=== PATIENT | female | born 1945 | race Asian ===

== ENCOUNTER 2019-07-01 12:41 | Emergency (ER) | payer OTHER ==
[~2019-07-01] VITALS: Ht 152.4 cm; Wt 53.2 kg
[~2019-07-01 12:41] MED LIST: ATOR20TA86 PO; BISO5TAB26 PO; CALC-21 PO; CLOP75TA3 PO; GABA-531 PO; HYDR25TA PO; LOSA50TA64 PO; METF-960 PO; NITR0.4T52 SL
[2019-07-01 13:10] LABS: GLUCOSE,POINT OF CARE 160 MG/DL (70-110)
[2019-07-01 16:32] VITALS: BP 133/60
== END 2019-07-01 16:34 | disposition home or self-care (01) ==
LOC: EMS 12:41
DX: S33.8XXA Sprain of other parts of lumbar spine and pelvis, initial encounter (principal); E11.9 Type 2 diabetes mellitus without complications; E78.00 Pure hypercholesterolemia, unspecified; I10 Essential (primary) hypertension; I25.2 Old myocardial infarction; Z90.49 Acquired absence of other specified parts of digestive tract; Z79.84 Long term (current) use of oral hypoglycemic drugs; W19.XXXA Unspecified fall, initial encounter; Y93.89 Activity, other specified; Y92.89 Other specified places as the place of occurrence of the external cause; Y99.8 Other external cause status
CPT/HCPCS: 72220

== ENCOUNTER 2019-09-23 16:46 | Inpatient (IN) | payer OTHER ==
[~2019-09-23] VITALS: Ht 152.4 cm; Wt 56.5 kg
[~2019-09-23 16:46] MED LIST changes: -BISO5TAB26 PO; +BISO5TAB4 PO; -CLOP75TA3 PO
[2019-09-23 17:08] LABS: BASOPHILS % (AUTO) 0.6 % (0.0-2.0); HEMATOCRIT 37.5 % (36-46); HEMOGLOBIN 12.3 g/dL (12.0-16.0); LYMPHOCYTES # (AUTO) 3.2 K/uL (1.0-4.8); MEAN CORPUSCULAR HEMOGLOBIN 30.7 pg (26.0-34.0); MEAN CORPUSCULAR HGB CONC 32.9 G/dL (31.0-37.0); MEAN CORPUSCULAR VOLUME 93 fL (80-100); MONOCYTES # (AUTO) 0.7 K/uL (0.1-1.0); MONOCYTES % (AUTO) 10.2 % (2.0-9.0); NEUTROPHILS % (AUTO) 43.2 % (40.0-70.0); PLATELET COUNT (AUTO) 200 K/uL (150-450); RED BLOOD CELL COUNT(AUTO) 4.01 MIL/uL (4.00-5.20); RED CELL DISTRIBUTION WIDTH 12.8 % (11.5-14.5)
[2019-09-23] MEDS ORDERED: SODIUM CHLORIDE 0.9% 100 ML ONE ×3 (17:24→17:25)
[2019-09-23] MEDS ORDERED: IOVERSOL 320 MG/ML 100 ML VIAL ONE (17:24)
[2019-09-23 17:25] LABS: CALCIUM, TOTAL 8.7 mg/dL (8.8-10.5); CREATININE 1.19 mg/dL (0.60-1.30); POTASSIUM 3.5 mmol/L (3.5-5.1)
[2019-09-23 17:30] LABS: ALBUMIN 3.5 g/dL (3.4-5.0); BILIRUBIN,TOTAL 0.2 mg/dL (0.1-1.0); TOTAL PROTEIN, SERUM 7.5 g/dL (6.4-8.2)
[2019-09-23] MEDS ORDERED: LevETIRAcetam 1,000 MG in DEXTROSE 5%-WATER 100 ML IV ONE (17:30)
[2019-09-23 18:11] LABS: PROTHROMBIN TIME 10.2 SEC (9.4-11.6)
[2019-09-23] MEDS ORDERED: ALTEPLASE 5.2 MG in WATER FOR INJECTION,STERILE 5.2 ML IV ONE (19:00)
[2019-09-23] MEDS ORDERED: WATER FOR INJECTION STERILE IV ONE ×3 (19:00)
[2019-09-23] MEDS ORDERED: ALTEPLASE IV ONE ×3 (19:00)
[2019-09-23] MEDS ORDERED: ALTEPLASE PER STROKE PROTOCOL CLINICAL ONE (19:15)
[2019-09-23] MEDS ORDERED: BISACODYL 10 MG RECTAL RECTAL SUPPOSITORY PR PRN (20:15)
[2019-09-23] MEDS ORDERED: DEXTROSE 50%-WATER 25 GM/50 ML SYRINGE IVP PRN (20:15)
[2019-09-23 20:56] LABS: APPEARANCE,URINE CLEAR (CLEAR); BILIRUBIN,URINE NEGATIVE (NEGATIVE); GLUCOSE, URINE (UA) NEGATIVE (NEGATIVE); KETONES,URINE NEGATIVE (NEGATIVE); LEUKOCYTE ESTERASE ,URINE NEGATIVE (NEGATIVE); NITRATE,URINE NEGATIVE (NEGATIVE); OCCULT BLOOD,URINE LARGE (NEGATIVE); PH,URINE 5.5 (5.0-8.0); PROTEIN,URINE NEGATIVE (NEGATIVE); UROBILINOGEN,URINE 0.2 mg/dL (<=1.0)
[2019-09-23 21:02] LABS: GLUCOSE,POINT OF CARE 88 MG/DL (70-110)
[2019-09-23 21:03] LABS: AMPHET/METH SCREEN,URINE NEGATIVE (NEGATIVE); BARBITURATE SCREEN, URINE NEGATIVE (NEGATIVE); BENZODIAZEPINES SCREEN,URINE NEGATIVE (NEGATIVE); CANNABINOID SCREEN,URINE NEGATIVE (NEGATIVE); COCAINE SCREEN,URINE NEGATIVE (NEGATIVE); METHADONE SCREEN, URINE NEGATIVE (NEGATIVE); OPIATE SCREEN,URINE NEGATIVE (NEGATIVE)
[2019-09-23 21:05] LABS: BACTERIA,URINE None Seen /HPF (None Seen); WBC,URINE None Seen /HPF (0-5)
[2019-09-23 21:06] LABS: SQUAMOUS EPITHELIAL CELL,UR Rare /LPF (None Seen)
[2019-09-23 21:08] LABS: PHENCYCLIDINE SCREEN,URINE NEGATIVE (NEGATIVE)
[2019-09-23] MEDS ORDERED: DEXTROSE 50%-WATER 25 GM/50 ML SYRINGE IVP ONE (21:15)
[2019-09-23 23:12] LABS: GLUCOSE,POINT OF CARE 101 MG/DL (70-110)
[2019-09-24 07:37] LABS: GLUCOSE,POINT OF CARE 102 MG/DL (70-110)
[2019-09-24] MEDS: PANTOPRAZOLE SODIUM 40 MG/VIAL IVP SCH (09:14)
[2019-09-24] MEDS ORDERED: DEXTROSE 5%-0.45% SODIUM CHL 1,000 ML IV ONE (10:45)
[2019-09-24 10:50] LABS: BASOPHILS % (AUTO) 0.8 % (0.0-2.0); EOSINOPHILS % (AUTO) 0.7 % (1.0-6.0); HEMATOCRIT 36.6 % (36-46); HEMOGLOBIN 12.2 g/dL (12.0-16.0); LYMPHOCYTES # (AUTO) 2.3 K/uL (1.0-4.8); MEAN CORPUSCULAR HGB CONC 33.3 G/dL (31.0-37.0); MEAN CORPUSCULAR VOLUME 93 fL (80-100); MONOCYTES # (AUTO) 0.5 K/uL (0.1-1.0); MONOCYTES % (AUTO) 6.9 % (2.0-9.0); NEUTROPHILS # (AUTO) 3.7 K/uL (1.8-7.7); NEUTROPHILS % (AUTO) 56.6 % (40.0-70.0); PLATELET COUNT (AUTO) 185 K/uL (150-450); RED BLOOD CELL COUNT(AUTO) 3.93 MIL/uL (4.00-5.20)
[2019-09-24 10:59] LABS: ANION GAP 6 mmol/L (8-16); CALCIUM, TOTAL 8.7 mg/dL (8.8-10.5); CARBON DIOXIDE 28 mmol/L (22-29); CHLORIDE 106 mmol/L (98-107); CREATININE 0.81 mg/dL (0.60-1.30); GLUCOSE,RANDOM 105 mg/dL (70-110); POTASSIUM 3.8 mmol/L (3.5-5.1); SODIUM SERUM 140 mmol/L (136-145); UREA NITROGEN, BLOOD 14 mg/dL (7-18)
[2019-09-24 11:00] LABS: GLOMERULAR FILTR. RATE CALC > 60 mL/min (>60)
[2019-09-24 11:13] LABS: HEMOGLOBIN A1C 6.4 % (4.5-6.2)
[2019-09-24 11:13] LABS: GLUCOSE,POINT OF CARE 103 MG/DL (70-110)
[2019-09-24 11:14] LABS: CHOL/HDL RATIO 2.7 (3.9-5.7); CHOLESTEROL 136 mg/dL (131-200); HDL CHOLESTEROL 51 mg/dL (40-60); LDL CHOL (CALC.) 62 mg/dL (0-130); THYROID STIMULATING HORMONE 0.59 uIU/mL (0.36-3.74); TRIGLYCERIDES 114 mg/dL (15-150)
[2019-09-24] MEDS: ACETAMINOPHEN 325 MG TABLET PO PRN (14:21)
[2019-09-24 17:43] LABS: GLUCOSE,POINT OF CARE 114 MG/DL (70-110)
[2019-09-24] MEDS: INSULIN LISPRO 100 UNITS/ML SQ PRN (20:36)
[2019-09-24 20:41] LABS: GLUCOSE,POINT OF CARE 177 MG/DL (70-110)
[2019-09-25] MEDS: PANTOPRAZOLE SODIUM 40 MG/VIAL IVP SCH (08:29)
[2019-09-25 08:58] LABS: GLUCOSE,POINT OF CARE 95 MG/DL (70-110)
[2019-09-25] MEDS: ACETAMINOPHEN 325 MG TABLET PO PRN (13:07)
[2019-09-25] MEDS: ATORVASTATIN CALCIUM 40 MG TABLET PO SCH (17:10)
[2019-09-25 21:10] VITALS: BP 163/72
[2019-09-25] MEDS: INSULIN LISPRO 100 UNITS/ML SQ PRN (22:56)
[2019-09-25 23:14] VITALS: BP 125/67
[2019-09-26] MEDS ORDERED: PNEUMOCOCCAL VACCINE POLYVALENT 0.5 ML VIAL [PPSV23] IM ONE (01:30)
[2019-09-26] MEDS ORDERED: INFLUENZA VIRUS VACCINE QVS 2019-20 (3YR+)/PF 60 MCG/0.5 ML SYRINGE IM ONE (01:30)
[2019-09-26 05:14] VITALS: BP 127/75
[2019-09-26 06:50] LABS: GLUCOMETER DEV NAME(LOC) 5S.1; GLUCOSE,POINT OF CARE 158 MG/DL (70-110)
[2019-09-26 06:50] LABS: GLUCOMETER DEV NAME(LOC) 5S.1; GLUCOSE,POINT OF CARE 104 MG/DL (70-110)
[2019-09-26 07:20] VITALS: BP 145/69
[2019-09-26] MEDS: PANTOPRAZOLE SODIUM 40 MG/VIAL IVP SCH (08:27)
[2019-09-26] MEDS: ASPIRIN 81 MG CHEWABLE TABLET PO SCH (08:27)
[2019-09-26] MEDS: ATORVASTATIN CALCIUM 40 MG TABLET PO SCH (08:27)
[2019-09-26 10:13] LABS: BASOPHILS % (AUTO) 0.6 % (0.0-2.0); EOSINOPHILS % (AUTO) 2.2 % (1.0-6.0); HEMATOCRIT 34.5 % (36-46); HEMOGLOBIN 11.8 g/dL (12.0-16.0); MEAN CORPUSCULAR HEMOGLOBIN 31.7 pg (26.0-34.0); MEAN CORPUSCULAR HGB CONC 34.2 G/dL (31.0-37.0); MEAN CORPUSCULAR VOLUME 93 fL (80-100); MONOCYTES # (AUTO) 0.5 K/uL (0.1-1.0); MONOCYTES % (AUTO) 7.4 % (2.0-9.0); NEUTROPHILS # (AUTO) 3.5 K/uL (1.8-7.7); NEUTROPHILS % (AUTO) 56.8 % (40.0-70.0); PLATELET COUNT (AUTO) 170 K/uL (150-450); RED BLOOD CELL COUNT(AUTO) 3.72 MIL/uL (4.00-5.20); RED CELL DISTRIBUTION WIDTH 12.8 % (11.5-14.5)
[2019-09-26 10:17] LABS: ANION GAP 4 mmol/L (8-16); CALCIUM, TOTAL 8.5 mg/dL (8.8-10.5); CARBON DIOXIDE 30 mmol/L (22-29); CHLORIDE 105 mmol/L (98-107); GLUCOSE,RANDOM 133 mg/dL (70-110); POTASSIUM 3.9 mmol/L (3.5-5.1); SODIUM SERUM 139 mmol/L (136-145); UREA NITROGEN, BLOOD 15 mg/dL (7-18)
[2019-09-26 10:20] LABS: GLOMERULAR FILTR. RATE CALC > 60 mL/min (>60)
[2019-09-26 11:40] VITALS: BP 135/70
[2019-09-26 15:57] VITALS: BP 119/62
[2019-09-26 16:47] LABS: GLUCOMETER DEV NAME(LOC) 5S.1; GLUCOSE,POINT OF CARE 85 MG/DL (70-110)
[2019-09-26 20:24] VITALS: BP 119/62
[2019-09-26 23:16] LABS: GLUCOMETER DEV NAME(LOC) 5S.1; GLUCOSE,POINT OF CARE 128 MG/DL (70-110)
[2019-09-26 23:47] VITALS: BP 139/60
[2019-09-27 06:03] VITALS: BP 128/56
[2019-09-27 07:02] LABS: GLUCOMETER DEV NAME(LOC) 5S.1; GLUCOSE,POINT OF CARE 118 MG/DL (70-110)
[2019-09-27 07:35] VITALS: BP 131/71
[2019-09-27] MEDS: ATORVASTATIN CALCIUM 40 MG TABLET PO SCH (08:26)
[2019-09-27] MEDS: PANTOPRAZOLE SODIUM 40 MG/VIAL IVP SCH (08:26)
[2019-09-27] MEDS: ASPIRIN 81 MG CHEWABLE TABLET PO SCH (08:26)
[2019-09-27 11:29] VITALS: BP 137/75
[2019-09-27 13:26] LABS: GLUCOMETER DEV NAME(LOC) 5S.1; GLUCOSE,POINT OF CARE 100 MG/DL (70-110)
[2019-09-27 15:20] VITALS: BP 124/68
[2019-09-28 11:51] LABS: GLUCOMETER DEV NAME(LOC) 5S.1; GLUCOSE,POINT OF CARE 106 MG/DL (70-110)
== END 2019-09-27 17:41 | DRG 45 ==
LOC: EMS 16:47 → 5N 09-25 18:39
PROVIDERS: ADMIT Internal Medicine; ATTEND Internal Medicine
DX: I63.9 Cerebral infarction, unspecified (principal); E11.9 Type 2 diabetes mellitus without complications; G81.94 Hemiplegia, unspecified affecting left nondominant side; R47.01 Aphasia; I25.10 Atherosclerotic heart disease of native coronary artery without angina pectoris; E78.5 Hyperlipidemia, unspecified; I10 Essential (primary) hypertension; E78.00 Pure hypercholesterolemia, unspecified; Z82.49 Family history of ischemic heart disease and other diseases of the circulatory system; Z86.73 Personal history of transient ischemic attack (TIA), and cerebral infarction without residual deficits; Z95.1 Presence of aortocoronary bypass graft; Z90.49 Acquired absence of other specified parts of digestive tract; I25.2 Old myocardial infarction; Z98.49 Cataract extraction status, unspecified eye
CPT/HCPCS: 70496; 70551; 73521; 83036; 84443; 86850; 86900; 86901; 92610; 93005; 93306; 97116; 97162; 97166; 97530; 97535; 99291; C9113; J0712; J1815; J2997; J7050; J7060

== ENCOUNTER 2019-09-27 17:50 | Inpatient (IN) | payer OTHER ==
[~2019-09-27] VITALS: Ht 149.9 cm; Wt 53.5 kg
[2019-09-27 18:00] VITALS: BP 144/69
[2019-09-27] MEDS ORDERED: BISACODYL 10 MG RECTAL RECTAL SUPPOSITORY PR PRN (20:15)
[2019-09-27] MEDS ORDERED: INFLUENZA VIRUS VACCINE QVS 2019-20 (3YR+)/PF 60 MCG/0.5 ML SYRINGE IM ONE (20:15)
[2019-09-27] MEDS ORDERED: DEXTROSE 50%-WATER 25 GM/50 ML SYRINGE IVP PRN (20:15)
[2019-09-27] MEDS: SENNA 187 MG TABLET PO SCH (20:43)
[2019-09-27] MEDS: DOCUSATE SODIUM 100 MG CAPSULE PO SCH (20:43)
[2019-09-27] MEDS: INSULIN LISPRO 100 UNITS/ML SQ PRN (21:46)
[2019-09-27 22:06] LABS: GLUCOMETER DEV NAME(LOC) 2WR.2; GLUCOSE,POINT OF CARE 159 MG/DL (70-110)
[2019-09-27 23:30] VITALS: BP 137/63
[2019-09-28 06:13] LABS: GLUCOMETER DEV NAME(LOC) 2WR.1B; GLUCOSE,POINT OF CARE 112 MG/DL (70-110)
[2019-09-28 06:20] LABS: BASOPHILS % (AUTO) 0.8 % (0.0-2.0); EOSINOPHILS % (AUTO) 3.4 % (1.0-6.0); HEMATOCRIT 35.5 % (36-46); HEMOGLOBIN 12.1 g/dL (12.0-16.0); LYMPHOCYTES # (AUTO) 1.9 K/uL (1.0-4.8); LYMPHOCYTES % (AUTO) 30.3 % (22.0-44.0); MEAN CORPUSCULAR HEMOGLOBIN 31.4 pg (26.0-34.0); MEAN CORPUSCULAR HGB CONC 34.1 G/dL (31.0-37.0); MEAN CORPUSCULAR VOLUME 92 fL (80-100); MONOCYTES # (AUTO) 0.5 K/uL (0.1-1.0); MONOCYTES % (AUTO) 7.8 % (2.0-9.0); NEUTROPHILS # (AUTO) 3.7 K/uL (1.8-7.7); NEUTROPHILS % (AUTO) 57.7 % (40.0-70.0); PLATELET COUNT (AUTO) 179 K/uL (150-450); RED BLOOD CELL COUNT(AUTO) 3.86 MIL/uL (4.00-5.20); RED CELL DISTRIBUTION WIDTH 12.9 % (11.5-14.5)
[2019-09-28 06:35] LABS: ALANINE AMINOTRANSFERASE 17 U/L (12-78); ALBUMIN 3.3 g/dL (3.4-5.0); ALKALINE PHOSPHATASE 69 U/L (46-116); ANION GAP 7 mmol/L (8-16); ASPARTATE AMINOTRANSFERASE 14 U/L (15-37); BILIRUBIN,TOTAL 0.6 mg/dL (0.1-1.0); CALCIUM, TOTAL 8.7 mg/dL (8.8-10.5); CARBON DIOXIDE 27 mmol/L (22-29); CHLORIDE 105 mmol/L (98-107); CREATININE 0.86 mg/dL (0.60-1.30); GLUCOSE,RANDOM 116 mg/dL (70-110); POTASSIUM 3.8 mmol/L (3.5-5.1); SODIUM SERUM 139 mmol/L (136-145); TOTAL PROTEIN, SERUM 7.2 g/dL (6.4-8.2); UREA NITROGEN, BLOOD 18 mg/dL (7-18)
[2019-09-28 06:50] LABS: GLOMERULAR FILTR. RATE CALC > 60 mL/min (>60)
[2019-09-28 07:27] VITALS: BP 138/72
[2019-09-28] MEDS: ATORVASTATIN CALCIUM 40 MG TABLET PO SCH (08:55)
[2019-09-28] MEDS: ASPIRIN 81 MG CHEWABLE TABLET PO SCH (08:55)
[2019-09-28] MEDS: PANTOPRAZOLE SODIUM 40 MG DR TABLET PO SCH (08:55)
[2019-09-28] MEDS: ACETAMINOPHEN 325 MG TABLET PO PRN (08:55)
[2019-09-28] MEDS: DOCUSATE SODIUM 100 MG CAPSULE PO SCH ×3 (08:55→20:20)
[2019-09-28 13:30] LABS: GLUCOMETER DEV NAME(LOC) 2WR.1B; GLUCOSE,POINT OF CARE 78 MG/DL (70-110)
[2019-09-28 15:45] VITALS: BP 137/75
[2019-09-28 17:41] LABS: GLUCOMETER DEV NAME(LOC) 2WR.2; GLUCOSE,POINT OF CARE 107 MG/DL (70-110)
[2019-09-28] MEDS: SENNA 187 MG TABLET PO SCH (20:19)
[2019-09-28] MEDS: INSULIN LISPRO 100 UNITS/ML SQ PRN (20:28)
[2019-09-28 21:53] LABS: GLUCOMETER DEV NAME(LOC) 2WR.2; GLUCOSE,POINT OF CARE 171 MG/DL (70-110)
[2019-09-29 01:55] VITALS: BP 127/72
[2019-09-29 06:05] LABS: GLUCOMETER DEV NAME(LOC) 2WR.2; GLUCOSE,POINT OF CARE 145 MG/DL (70-110)
[2019-09-29] MEDS: ACETAMINOPHEN 325 MG TABLET PO PRN (06:59)
[2019-09-29] MEDS: INSULIN LISPRO 100 UNITS/ML SQ PRN (07:37)
[2019-09-29 08:00] VITALS: BP 128/68
[2019-09-29] MEDS: ATORVASTATIN CALCIUM 40 MG TABLET PO SCH (08:11)
[2019-09-29] MEDS: DOCUSATE SODIUM 100 MG CAPSULE PO SCH ×2 (08:12→20:46)
[2019-09-29] MEDS: PANTOPRAZOLE SODIUM 40 MG DR TABLET PO SCH (08:12)
[2019-09-29] MEDS: ASPIRIN 81 MG CHEWABLE TABLET PO SCH (08:12)
[2019-09-29 13:38] LABS: GLUCOMETER DEV NAME(LOC) 2WR.2; GLUCOSE,POINT OF CARE 87 MG/DL (70-110)
[2019-09-29 16:04] VITALS: BP 121/70
[2019-09-29 19:15] LABS: GLUCOMETER DEV NAME(LOC) 2WR.2; GLUCOSE,POINT OF CARE 106 MG/DL (70-110)
[2019-09-29] MEDS: SENNA 187 MG TABLET PO SCH (20:46)
[2019-09-29 22:01] LABS: GLUCOMETER DEV NAME(LOC) 2WR.1B; GLUCOSE,POINT OF CARE 108 MG/DL (70-110)
[2019-09-29 23:56] VITALS: BP 113/59
[2019-09-30 06:21] LABS: GLUCOMETER DEV NAME(LOC) 2WR.2; GLUCOSE,POINT OF CARE 104 MG/DL (70-110)
[2019-09-30 08:10] VITALS: BP 138/79
[2019-09-30] MEDS: ATORVASTATIN CALCIUM 40 MG TABLET PO SCH (08:30)
[2019-09-30] MEDS: ASPIRIN 81 MG CHEWABLE TABLET PO SCH (08:30)
[2019-09-30] MEDS: DOCUSATE SODIUM 100 MG CAPSULE PO SCH ×3 (08:30→20:20)
[2019-09-30] MEDS: PANTOPRAZOLE SODIUM 40 MG DR TABLET PO SCH (08:30)
[2019-09-30] MEDS: MetFORMIN HCL 500 MG TABLET PO SCH (17:20)
[2019-09-30 19:38] LABS: GLUCOMETER DEV NAME(LOC) 2WR.2; GLUCOSE,POINT OF CARE 110 MG/DL (70-110)
[2019-09-30 19:39] LABS: GLUCOMETER DEV NAME(LOC) 2WR.1B; GLUCOSE,POINT OF CARE 87 MG/DL (70-110)
[2019-09-30] MEDS: MELATONIN 3 MG TABLET PO PRN (20:20)
[2019-09-30] MEDS: SENNA 187 MG TABLET PO SCH (20:20)
[2019-09-30 20:23] VITALS: BP 128/32
[2019-09-30 21:48] LABS: GLUCOMETER DEV NAME(LOC) 2WR.1B; GLUCOSE,POINT OF CARE 146 MG/DL (70-110)
[2019-10-01 02:00] VITALS: BP 126/74
[2019-10-01] MEDS: ACETAMINOPHEN 325 MG TABLET PO PRN ×2 (02:03→20:39)
[2019-10-01 06:32] LABS: GLUCOMETER DEV NAME(LOC) 2WR.2; GLUCOSE,POINT OF CARE 98 MG/DL (70-110)
[2019-10-01 07:41] VITALS: BP 133/71
[2019-10-01] MEDS: ASPIRIN 81 MG CHEWABLE TABLET PO SCH (07:49)
[2019-10-01] MEDS: MetFORMIN HCL 500 MG TABLET PO SCH ×2 (07:49→17:24)
[2019-10-01] MEDS: PANTOPRAZOLE SODIUM 40 MG DR TABLET PO SCH (07:49)
[2019-10-01] MEDS: DOCUSATE SODIUM 100 MG CAPSULE PO SCH ×2 (07:49→20:39)
[2019-10-01] MEDS: ATORVASTATIN CALCIUM 40 MG TABLET PO SCH (07:49)
[2019-10-01] MEDS: LOSARTAN POTASSIUM 50 MG TABLET PO SCH (07:49)
[2019-10-01 12:23] LABS: GLUCOMETER DEV NAME(LOC) 2WR.2; GLUCOSE,POINT OF CARE 116 MG/DL (70-110)
[2019-10-01 16:27] VITALS: BP 134/73
[2019-10-01 17:25] LABS: GLUCOMETER DEV NAME(LOC) 2WR.2; GLUCOSE,POINT OF CARE 115 MG/DL (70-110)
[2019-10-01] MEDS: MELATONIN 3 MG TABLET PO PRN (20:39)
[2019-10-01] MEDS: SENNA 187 MG TABLET PO SCH (20:39)
[2019-10-01 21:37] LABS: GLUCOMETER DEV NAME(LOC) 2WR.2; GLUCOSE,POINT OF CARE 122 MG/DL (70-110)
[2019-10-02 00:06] VITALS: BP 122/60
[2019-10-02 06:38] LABS: GLUCOMETER DEV NAME(LOC) 2WR.1B; GLUCOSE,POINT OF CARE 102 MG/DL (70-110)
[2019-10-02 08:00] VITALS: BP 126/68
[2019-10-02] MEDS: ATORVASTATIN CALCIUM 40 MG TABLET PO SCH (08:46)
[2019-10-02] MEDS: LOSARTAN POTASSIUM 50 MG TABLET PO SCH (08:46)
[2019-10-02] MEDS: DOCUSATE SODIUM 100 MG CAPSULE PO SCH ×2 (08:46→19:24)
[2019-10-02] MEDS: PANTOPRAZOLE SODIUM 40 MG DR TABLET PO SCH (08:46)
[2019-10-02] MEDS: MetFORMIN HCL 500 MG TABLET PO SCH ×2 (08:47→17:25)
[2019-10-02] MEDS: ASPIRIN 81 MG CHEWABLE TABLET PO SCH (08:48)
[2019-10-02 15:41] VITALS: BP 138/72
[2019-10-02 16:37] LABS: GLUCOMETER DEV NAME(LOC) 2WR.1B; GLUCOSE,POINT OF CARE 115 MG/DL (70-110)
[2019-10-02 16:37] LABS: GLUCOMETER DEV NAME(LOC) 2WR.1B; GLUCOSE,POINT OF CARE 89 MG/DL (70-110)
[2019-10-02] MEDS: SENNA 187 MG TABLET PO SCH (19:24)
[2019-10-02 21:19] LABS: GLUCOMETER DEV NAME(LOC) 2WR.1B; GLUCOSE,POINT OF CARE 113 MG/DL (70-110)
[2019-10-03 02:50] VITALS: BP 126/65
[2019-10-03 06:39] LABS: GLUCOMETER DEV NAME(LOC) 2WR.2; GLUCOSE,POINT OF CARE 97 MG/DL (70-110)
[2019-10-03] MEDS: LOSARTAN POTASSIUM 50 MG TABLET PO SCH (07:52)
[2019-10-03] MEDS: ASPIRIN 81 MG CHEWABLE TABLET PO SCH (07:52)
[2019-10-03] MEDS: ATORVASTATIN CALCIUM 40 MG TABLET PO SCH (07:53)
[2019-10-03] MEDS: PANTOPRAZOLE SODIUM 40 MG DR TABLET PO SCH (07:53)
[2019-10-03] MEDS: DOCUSATE SODIUM 100 MG CAPSULE PO SCH ×2 (07:53→21:39)
[2019-10-03] MEDS: MetFORMIN HCL 500 MG TABLET PO SCH ×2 (07:53→17:37)
[2019-10-03 08:01] VITALS: BP 128/70
[2019-10-03] MEDS: ACETAMINOPHEN 325 MG TABLET PO PRN (08:01)
[2019-10-03 16:22] VITALS: BP 132/77
[2019-10-03 17:32] LABS: GLUCOMETER DEV NAME(LOC) 2WR.2; GLUCOSE,POINT OF CARE 109 MG/DL (70-110)
[2019-10-03] MEDS: SENNA 187 MG TABLET PO SCH (21:39)
[2019-10-03] MEDS: MELATONIN 3 MG TABLET PO PRN (22:18)
[2019-10-04 01:45] VITALS: BP 126/70
[2019-10-04 06:20] LABS: GLUCOMETER DEV NAME(LOC) 2WR.1B; GLUCOSE,POINT OF CARE 113 MG/DL (70-110)
[2019-10-04 07:13] LABS: GLUCOMETER DEV NAME(LOC) 2WR.2; GLUCOSE,POINT OF CARE 90 MG/DL (70-110)
[2019-10-04] MEDS: PANTOPRAZOLE SODIUM 40 MG DR TABLET PO SCH (07:44)
[2019-10-04] MEDS: DOCUSATE SODIUM 100 MG CAPSULE PO SCH ×3 (07:44→20:16)
[2019-10-04] MEDS: ATORVASTATIN CALCIUM 40 MG TABLET PO SCH (07:44)
[2019-10-04] MEDS: CLOPIDOGREL BISULFATE 75 MG TABLET PO SCH (07:44)
[2019-10-04] MEDS: MetFORMIN HCL 500 MG TABLET PO SCH ×2 (07:44→17:25)
[2019-10-04 07:45] VITALS: BP 141/83
[2019-10-04] MEDS: LOSARTAN POTASSIUM 50 MG TABLET PO SCH (07:45)
[2019-10-04 13:14] LABS: GLUCOMETER DEV NAME(LOC) 2WR.2; GLUCOSE,POINT OF CARE 62 MG/DL (70-110)
[2019-10-04 13:38] LABS: GLUCOMETER DEV NAME(LOC) 2WR.2; GLUCOSE,POINT OF CARE 106 MG/DL (70-110)
[2019-10-04 15:46] VITALS: BP 121/63
[2019-10-04 17:48] LABS: GLUCOMETER DEV NAME(LOC) 2WR.2; GLUCOSE,POINT OF CARE 87 MG/DL (70-110)
[2019-10-04] MEDS: MELATONIN 3 MG TABLET PO PRN (20:15)
[2019-10-04] MEDS: SENNA 187 MG TABLET PO SCH ×2 (20:15→20:16)
[2019-10-05] VITALS: BP 111/54
[2019-10-05 06:22] LABS: GLUCOMETER DEV NAME(LOC) 2WR.2; GLUCOSE,POINT OF CARE 131 MG/DL (70-110)
[2019-10-05] MEDS: CLOPIDOGREL BISULFATE 75 MG TABLET PO SCH (07:52)
[2019-10-05] MEDS: DOCUSATE SODIUM 100 MG CAPSULE PO SCH ×2 (07:52→20:10)
[2019-10-05] MEDS: MetFORMIN HCL 500 MG TABLET PO SCH ×2 (07:52→17:10)
[2019-10-05] MEDS: LOSARTAN POTASSIUM 50 MG TABLET PO SCH (07:52)
[2019-10-05] MEDS: ATORVASTATIN CALCIUM 40 MG TABLET PO SCH (07:52)
[2019-10-05] MEDS: PANTOPRAZOLE SODIUM 40 MG DR TABLET PO SCH (07:52)
[2019-10-05 08:00] VITALS: BP 116/76
[2019-10-05 15:45] VITALS: BP 141/78
[2019-10-05 17:30] LABS: GLUCOMETER DEV NAME(LOC) 2WR.2; GLUCOSE,POINT OF CARE 107 MG/DL (70-110)
[2019-10-05] MEDS: SENNA 187 MG TABLET PO SCH (20:10)
[2019-10-06] VITALS: BP 115/65
[2019-10-06 05:30] VITALS: BP 149/70
[2019-10-06 06:25] LABS: GLUCOMETER DEV NAME(LOC) 2WR.2; GLUCOSE,POINT OF CARE 106 MG/DL (70-110)
[2019-10-06 07:30] VITALS: BP 119/64
[2019-10-06] MEDS: CLOPIDOGREL BISULFATE 75 MG TABLET PO SCH (08:07)
[2019-10-06] MEDS: PANTOPRAZOLE SODIUM 40 MG DR TABLET PO SCH (08:07)
[2019-10-06] MEDS: DOCUSATE SODIUM 100 MG CAPSULE PO SCH ×2 (08:08→21:00)
[2019-10-06] MEDS: ATORVASTATIN CALCIUM 40 MG TABLET PO SCH (08:08)
[2019-10-06] MEDS: LOSARTAN POTASSIUM 50 MG TABLET PO SCH (08:08)
[2019-10-06] MEDS: MetFORMIN HCL 500 MG TABLET PO SCH ×2 (08:19→17:20)
[2019-10-06 15:00] VITALS: BP 133/74
[2019-10-06] MEDS: CAMPHOR/MENTHOL 222 ML LOTION TP SCH ×2 (17:19→21:00)
[2019-10-06 18:33] LABS: GLUCOMETER DEV NAME(LOC) 2WR.2; GLUCOSE,POINT OF CARE 136 MG/DL (70-110)
[2019-10-06] MEDS: SENNA 187 MG TABLET PO SCH (21:00)
[2019-10-07] VITALS: BP 105/64
[2019-10-07 06:24] LABS: GLUCOMETER DEV NAME(LOC) 2WR.1B; GLUCOSE,POINT OF CARE 85 MG/DL (70-110)
[2019-10-07] MEDS: DOCUSATE SODIUM 100 MG CAPSULE PO SCH ×2 (07:50→21:00)
[2019-10-07] MEDS: CLOPIDOGREL BISULFATE 75 MG TABLET PO SCH (07:50)
[2019-10-07] MEDS: MetFORMIN HCL 500 MG TABLET PO SCH ×2 (07:50→17:46)
[2019-10-07] MEDS: PANTOPRAZOLE SODIUM 40 MG DR TABLET PO SCH (07:50)
[2019-10-07] MEDS: LOSARTAN POTASSIUM 50 MG TABLET PO SCH (07:51)
[2019-10-07] MEDS: ATORVASTATIN CALCIUM 40 MG TABLET PO SCH (07:51)
[2019-10-07] MEDS: CAMPHOR/MENTHOL 222 ML LOTION TP SCH ×3 (07:51→21:00)
[2019-10-07 07:54] VITALS: BP 129/68
[2019-10-07 15:00] VITALS: BP 130/65
[2019-10-07] MEDS: SENNA 187 MG TABLET PO SCH (21:00)
[2019-10-07 23:55] VITALS: BP 130/65
[2019-10-07] MEDS: MELATONIN 3 MG TABLET PO PRN (23:55)
[2019-10-08 04:17] LABS: GLUCOMETER DEV NAME(LOC) 2WR.1B; GLUCOSE,POINT OF CARE 133 MG/DL (70-110)
[2019-10-08 07:45] VITALS: BP_SYST 128; BP_SYST 130; BP_DIAS 65; BP_DIAS 69
[2019-10-08] MEDS: LOSARTAN POTASSIUM 50 MG TABLET PO SCH (08:10)
[2019-10-08] MEDS: CLOPIDOGREL BISULFATE 75 MG TABLET PO SCH (08:10)
[2019-10-08] MEDS: PANTOPRAZOLE SODIUM 40 MG DR TABLET PO SCH (08:10)
[2019-10-08] MEDS: DOCUSATE SODIUM 100 MG CAPSULE PO SCH ×2 (08:10→20:12)
[2019-10-08] MEDS: MetFORMIN HCL 500 MG TABLET PO SCH ×2 (08:10→16:40)
[2019-10-08] MEDS: ATORVASTATIN CALCIUM 40 MG TABLET PO SCH (08:10)
[2019-10-08] MEDS: CAMPHOR/MENTHOL 222 ML LOTION TP SCH ×3 (08:14→20:12)
[2019-10-08 15:50] VITALS: BP 123/69
[2019-10-08] MEDS: SENNA 187 MG TABLET PO SCH (20:12)
[2019-10-08] MEDS: MELATONIN 3 MG TABLET PO PRN (20:13)
[2019-10-08 20:23] VITALS: BP 113/55
[2019-10-08 20:38] LABS: GLUCOMETER DEV NAME(LOC) 2WR.1B; GLUCOSE,POINT OF CARE 88 MG/DL (70-110)
[2019-10-09 05:04] VITALS: BP 125/62
[2019-10-09] MEDS: ACETAMINOPHEN 325 MG TABLET PO PRN (05:04)
[2019-10-09 07:30] VITALS: BP 133/67
[2019-10-09] MEDS: ATORVASTATIN CALCIUM 40 MG TABLET PO SCH (08:15)
[2019-10-09] MEDS: CLOPIDOGREL BISULFATE 75 MG TABLET PO SCH (08:15)
[2019-10-09] MEDS: MetFORMIN HCL 500 MG TABLET PO SCH ×2 (08:15→16:50)
[2019-10-09] MEDS: PANTOPRAZOLE SODIUM 40 MG DR TABLET PO SCH (08:15)
[2019-10-09] MEDS: LOSARTAN POTASSIUM 50 MG TABLET PO SCH (08:31)
[2019-10-09] MEDS: DOCUSATE SODIUM 100 MG CAPSULE PO SCH ×2 (08:32→20:04)
[2019-10-09] MEDS: CAMPHOR/MENTHOL 222 ML LOTION TP SCH ×3 (08:32→20:05)
[2019-10-09 15:25] VITALS: BP 149/69
[2019-10-09] MEDS: SENNA 187 MG TABLET PO SCH (20:04)
[2019-10-10 00:45] VITALS: BP 120/70
[2019-10-10] MEDS: MELATONIN 3 MG TABLET PO PRN ×2 (00:47→21:28)
[2019-10-10 07:45] VITALS: BP 150/79
[2019-10-10] MEDS: LOSARTAN POTASSIUM 50 MG TABLET PO SCH (07:46)
[2019-10-10] MEDS: CLOPIDOGREL BISULFATE 75 MG TABLET PO SCH (07:48)
[2019-10-10] MEDS: DOCUSATE SODIUM 100 MG CAPSULE PO SCH ×2 (07:48→21:25)
[2019-10-10] MEDS: ATORVASTATIN CALCIUM 40 MG TABLET PO SCH (07:48)
[2019-10-10] MEDS: PANTOPRAZOLE SODIUM 40 MG DR TABLET PO SCH (07:48)
[2019-10-10] MEDS: MetFORMIN HCL 500 MG TABLET PO SCH ×2 (07:48→17:18)
[2019-10-10] MEDS: CAMPHOR/MENTHOL 222 ML LOTION TP SCH ×3 (07:49→21:25)
[2019-10-10 17:51] VITALS: BP 128/66
[2019-10-10] MEDS: SENNA 187 MG TABLET PO SCH (21:25)
[2019-10-11] VITALS: BP 138/67
[2019-10-11 07:45] VITALS: BP 133/69
[2019-10-11] MEDS: DOCUSATE SODIUM 100 MG CAPSULE PO SCH ×2 (08:23→21:23)
[2019-10-11] MEDS: CLOPIDOGREL BISULFATE 75 MG TABLET PO SCH (08:23)
[2019-10-11] MEDS: MetFORMIN HCL 500 MG TABLET PO SCH ×2 (08:23→17:05)
[2019-10-11] MEDS: PANTOPRAZOLE SODIUM 40 MG DR TABLET PO SCH (08:23)
[2019-10-11] MEDS: LOSARTAN POTASSIUM 50 MG TABLET PO SCH (08:23)
[2019-10-11] MEDS: ATORVASTATIN CALCIUM 40 MG TABLET PO SCH (08:23)
[2019-10-11] MEDS: CAMPHOR/MENTHOL 222 ML LOTION TP SCH ×3 (08:26→21:00)
[2019-10-11 15:34] VITALS: BP 119/64
[2019-10-11] MEDS: SENNA 187 MG TABLET PO SCH (21:23)
[2019-10-12 00:26] VITALS: BP 122/60
[2019-10-12 08:00] VITALS: BP 139/75
[2019-10-12] MEDS: LOSARTAN POTASSIUM 50 MG TABLET PO SCH (08:01)
[2019-10-12] MEDS: CAMPHOR/MENTHOL 222 ML LOTION TP SCH (08:01)
[2019-10-12] MEDS: MetFORMIN HCL 500 MG TABLET PO SCH (08:01)
[2019-10-12] MEDS: ATORVASTATIN CALCIUM 40 MG TABLET PO SCH (08:01)
[2019-10-12] MEDS: CLOPIDOGREL BISULFATE 75 MG TABLET PO SCH (08:02)
[2019-10-12] MEDS: DOCUSATE SODIUM 100 MG CAPSULE PO SCH (08:02)
[2019-10-12] MEDS: PANTOPRAZOLE SODIUM 40 MG DR TABLET PO SCH (08:02)
[2019-10-12] MEDS: ACETAMINOPHEN 325 MG TABLET PO PRN (08:03)
[2019-10-12] MEDS ORDERED: CLOP75TA3 PO (11:21)
[2019-10-12] MEDS ORDERED: ATOR40TA28 PO (11:21)
[2019-10-12] MEDS ORDERED: DOCU-275 PO (11:21)
[2019-10-12] MEDS ORDERED: PANT40TA25 PO (11:21)
== END 2019-10-12 14:05 | disposition home health service (06) | DRG 45 ==
LOC: 2WR 17:50
PROVIDERS: ADMIT Physical Medicine & Rehabilitation; ATTEND Physical Medicine & Rehabilitation
DX: I63.9 Cerebral infarction, unspecified (principal); E46 Unspecified protein-calorie malnutrition; E11.9 Type 2 diabetes mellitus without complications; G81.94 Hemiplegia, unspecified affecting left nondominant side; G40.909 Epilepsy, unspecified, not intractable, without status epilepticus; E78.5 Hyperlipidemia, unspecified; G47.00 Insomnia, unspecified; I10 Essential (primary) hypertension; I25.10 Atherosclerotic heart disease of native coronary artery without angina pectoris; K59.00 Constipation, unspecified; Z79.899 Other long term (current) drug therapy; Z95.1 Presence of aortocoronary bypass graft; I25.2 Old myocardial infarction; Z79.02 Long term (current) use of antithrombotics/antiplatelets; Z68.23 Body mass index [BMI] 23.0-23.9, adult; R26.9 Unspecified abnormalities of gait and mobility
CPT/HCPCS: 83036; 87081; 90686; 92507; 92508; 92523; 97110; 97112; 97116; 97150; 97163; 97166; 97530; 97535; 99366

== ENCOUNTER 2022-04-22 20:04 | Emergency (ER) | payer OTHER, MEDICARE ==
[~2022-04-22] VITALS: Ht 149.9 cm; Wt 52.7 kg
[~2022-04-22 20:04] MED LIST changes: -ATOR20TA86 PO; +ATOR40TA28 PO; -BISO5TAB4 PO; -CALC-21 PO; +CLOP75TA60 PO; +DOCU-385 PO; -GABA-531 PO; -HYDR25TA PO; +LOSA-382 PO; -LOSA50TA64 PO; +METF-1211 PO; -METF-960 PO; -NITR0.4T52 SL; +PANT-31 PO
[2022-04-22] MEDS ORDERED: APIX2.5T PO (20:20)
[2022-04-22 20:41] LABS: GLUCOSE,POINT OF CARE 153 MG/DL (70-110)
[2022-04-22 22:20] LABS: BASOPHILS % (AUTO) 0.7 % (0.0-2.0); EOSINOPHILS % (AUTO) 1.5 % (1.0-6.0); HEMATOCRIT 32.1 % (36-46); HEMOGLOBIN 10.9 g/dL (12.0-16.0); LYMPHOCYTES # (AUTO) 2.4 K/uL (1.0-4.8); LYMPHOCYTES % (AUTO) 33.6 % (22.0-44.0); MEAN CORPUSCULAR HEMOGLOBIN 31.7 pg (26.0-34.0); MEAN CORPUSCULAR VOLUME 93 fL (80-100); MONOCYTES # (AUTO) 0.7 K/uL (0.1-1.0); MONOCYTES % (AUTO) 9.7 % (2.0-9.0); NEUTROPHILS # (AUTO) 3.9 K/uL (1.8-7.7); NEUTROPHILS % (AUTO) 54.5 % (40.0-70.0); PLATELET COUNT (AUTO) 185 K/uL (150-450); RED BLOOD CELL COUNT(AUTO) 3.45 MIL/uL (4.00-5.20); RED CELL DISTRIBUTION WIDTH 12.5 % (11.5-14.5)
[2022-04-22 22:27] LABS: CALCIUM, TOTAL 9.1 mg/dL (8.8-10.5); CREATININE 0.91 mg/dL (0.60-1.30)
[2022-04-22 22:57] LABS: APPEARANCE,URINE CLEAR (CLEAR); BILIRUBIN,URINE NEGATIVE (NEGATIVE); GLUCOSE, URINE (UA) NEGATIVE (NEGATIVE); KETONES,URINE NEGATIVE (NEGATIVE); LEUKOCYTE ESTERASE ,URINE MODERATE (NEGATIVE); NITRATE,URINE NEGATIVE (NEGATIVE); OCCULT BLOOD,URINE NEGATIVE (NEGATIVE); PH,URINE 6.5 (5.0-8.0); PROTEIN,URINE NEGATIVE (NEGATIVE); SPECIFIC GRAVITIY, URINE 1.013 (1.003-1.030); UROBILINOGEN,URINE <=1.0 mg/dL (<=1.0)
[2022-04-22 23:17] LABS: BACTERIA,URINE Few /HPF (None Seen); SQUAMOUS EPITHELIAL CELL,UR Few /LPF (None Seen)
[2022-04-23] MEDS ORDERED: RINGERS SOLUTION,LACTATED 500 ML IV ONE
[2022-04-23 02:34] VITALS: BP 152/77
== END 2022-04-23 03:25 | disposition home or self-care (01) ==
LOC: EMS 20:25
DX: R53.1 Weakness (principal); R42 Dizziness and giddiness; E86.0 Dehydration; E11.9 Type 2 diabetes mellitus without complications; E78.00 Pure hypercholesterolemia, unspecified; I10 Essential (primary) hypertension; H26.9 Unspecified cataract; Z86.79 Personal history of other diseases of the circulatory system; Z90.49 Acquired absence of other specified parts of digestive tract
CPT/HCPCS: 36415; 71045; 80048; 81001; 82962; 84484; 85025; 93005; 96360; 99285; J7120

== ENCOUNTER 2023-10-20 14:09 | Emergency (ER) | payer MEDICARE, OTHER ==
[~2023-10-20] VITALS: Ht 152.4 cm; Wt 52.3 kg
[~2023-10-20 14:09] MED LIST changes: +APIX2.5T PO
[2023-10-20 15:44] VITALS: TEMP 98.3
[2023-10-20 16:30] VITALS: BP 140/85; PULSE 97; RESP 12
== END 2023-10-20 16:47 | disposition home or self-care (01) ==
LOC: EMS 14:11
DX: S09.90XA Unspecified injury of head, initial encounter (principal); E11.9 Type 2 diabetes mellitus without complications; E78.00 Pure hypercholesterolemia, unspecified; I10 Essential (primary) hypertension; Z90.49 Acquired absence of other specified parts of digestive tract; Z79.01 Long term (current) use of anticoagulants; W01.0XXA Fall on same level from slipping, tripping and stumbling without subsequent striking against object, initial encounter; Y93.89 Activity, other specified; Y92.89 Other specified places as the place of occurrence of the external cause; Y99.8 Other external cause status
CPT/HCPCS: 70450; 72125; 99284